=== PATIENT | female | born 1940 | race Caucasian/White ===

== ENCOUNTER 2019-06-20 22:06 | Inpatient (IN) | payer MEDICARE, BC ==
[~2019-06-20] VITALS: Ht 160 cm; Wt 65.8 kg
[2019-06-20 22:06] VITALS: BP 128/63
--- NOTE | 2019-06-20 22:06 | NUR ---
ED Nurse Note: PT ARRIVED WITH RA 861 FROM [facility] D/T UPPER BACK, NECK, AND SHOULDER PAIN FOR 30 MIN. PT STATES SHE HAS HX OF NEUROPATHY
[2019-06-20] MEDS ORDERED: Omnipaque-300 100ml vial INJ ONE (22:15)
[2019-06-20] MEDS ORDERED: Morphine Sulfate 4mg/ml Inj (IV USE ONLY) IVP ONE (22:15)
--- NOTE | 2019-06-20 22:17 | Emergency Room Report ---
History of Present Illness General Chief Complaint: Pain Source: Patient Present Illness HPI This is an 78-year-old female with past medical history of reflux. She presents with chief complaint of acute onset of back pain. Occurred just prior to arrival. Initially she had sharp pain to her right shoulder. 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 It radiated up her back and down her back. She described the pain as sharp 10 out of 10. She felt short of breath and nervous. No chest pain. No nausea no vomiting. Also with a headache. Never had this problem before. Denies any other complaint. Allergies: Coded Allergies: No Known Allergies (Unverified , 06/20/19) Patient History Past Medical History: see triage record, old chart reviewed Past Surgical History: none Pertinent Family History: none Social History: Denies: smoking Now: No Immunizations: other Reviewed Nursing Documentation: PMH: Agreed; PSxH: Agreed Nursing Documentation-PMH Past Medical History: No History, Except For Hx Cardiac Problems: No - NEUROPATHY, PRE-DIABETES Review of Systems Eye: Denies: eye pain, blurred vision ENT: Denies: ear pain, nose congestion, throat swelling Respiratory: Denies: cough, shortness of breath Cardiovascular: Denies: chest pain, palpitations Gastrointestinal: Denies: abdominal pain, diarrhea, nausea, vomiting Musculoskeletal: Reports: back pain; Denies: joint pain Skin: Denies: rash Neurological: Denies: headache, numbness Endocrine: Denies: increased thirst, increased urine Hematologic/Lymphatic: Denies: easy bruising All Other Systems: negative except mentioned in HPI Physical Exam Vital Signs Date Time Temp Pulse Resp B/P (MAP) Pulse Ox O2 Delivery O2 Flow Rate FiO2 06/20/19 22:01 97.0 78 18 128/63 (84) 99 Room Air Vitals normal Sp02 EP Interpretation: reviewed, normal General Appearance: well appearing, no apparent distress, alert Head: normocephalic, atraumatic Eyes: bilateral eye PERRL, bilateral eye EOMI ENT: hearing grossly normal, normal pharynx Neck: full range of motion, supple, no meningismus Respiratory: chest non-tender, lungs clear, normal breath sounds Cardiovascular #1: regular rate, rhythm, no murmur Gastrointestinal: normal bowel sounds, non tender, no mass, no organomegaly, no bruit, non-distended Musculoskeletal: back normal, gait/station normal, normal range of motion Neurologic: alert, oriented x3 Psychiatric: anxious Medical Decision Making Diagnostic Impression: Primary Impression: Intractable back pain Additional Impression: Anxiety ER Course Patient presents with acute onset of thoracic back pain. Labs and CT ordered to rule out dissection EKG is unremarkable. Patient is anxious. Morphine and Ativan given for the patient. Patient went somewhat to be sitting there to comfort her. Explained to the patient that ER is very busy and I do not have any staff to sit by her. Patient was not happy with this. Explained to the patient that return if you are out what is going on with her. We will treat her pain and anxiety. This patient presents with acute onset of thoracic back pain that reaches a front. Labs unremarkable. Chest x-ray unremarkable. CT chest abdomen pelvis negative for dissection. 2 troponins negative. She does have narrative changes of her spine. This may be the cause of her pain. Because she never had this problem before and with severe pain, will admit for further work-up. I discussed the case with Dr. Sinclair for admission. EKG Diagnostic Results Rate: normal Rhythm: NSR ST Segments: no acute changes Rhythm Strip Diag. Results EP Interpretation: yes Rate: 77 Rhythm: NSR, no PVC's, no ectopy Chest X-Ray Diagnostic Results Chest X-Ray Diagnostic Results : Chest X-Ray Ordered: Yes # of Views/Limited/Complete: 1 View Indication: Chest Pain EP Interpretation: Yes Interpretation: no consolidation, no effusion, no pneumothorax, no acute cardiopulmonary disease Impression: No acute disease Electronically Signed by: Greyson Garza MD CT/MRI/US Diagnostic Results CT/MRI/US Diagnostic Results : Imaging Test Ordered: CT chest abdomen and pelvis Impression Neg per radiologist. Last Vital Signs Date Time Temp Pulse Resp B/P (MAP) Pulse Ox O2 Delivery O2 Flow Rate FiO2 06/20/19 22:06 97.3 78 18 128/63 99 Room Air Status: improved Disposition: ADMITTED INPATIENT Condition: Serious Scripts No Active Prescriptions or Reported Meds Greyson Garza MD Jun 20, 2019 22:17
--- NOTE | 2019-06-20 22:22 | NUR ---
ED Nurse Note: IV site established, patent and intact. medication was administered, pt tolerated well. Will continue to monitor and await further orders
--- NOTE | 2019-06-20 22:40 | NUR ---
ED Nurse Note: xray at bedside
[2019-06-20] MEDS ORDERED: LORazepam Inj 2mg/ml 1ml IV ONE (22:45)
[2019-06-20 22:47] LABS: BASOPHILS % (AUTO) 1.1 % (0.0-2.0); EOSINOPHILS % (AUTO) 1.1 % (0.0-3.0); HEMATOCRIT 41.7 % (37.0-47.0); LYMPHOCYTES % (AUTO) 28.6 % (20.0-45.0); MEAN CORPUSCULAR VOLUME 86 FL (80-99); NEUTROPHILS % (AUTO) 61.1 % (45.0-75.0); PLATELET COUNT 274 K/UL (150-450); RED BLOOD COUNT 4.83 M/UL (4.20-5.40); RED CELL DISTRIBUTION WIDTH 11.6 % (11.6-14.8); WHITE BLOOD COUNT 11.3 K/UL (4.8-10.8)
[2019-06-20 23:00] LABS: ANION GAP 13 mmol/L (5-15); BLOOD UREA NITROGEN 19 mg/dL (7-18); CALCIUM 10.2 MG/DL (8.5-10.1); CARBON DIOXIDE 23 MMOL/L (21-32); CHLORIDE 105 MMOL/L (98-107); POTASSIUM 3.3 MMOL/L (3.5-5.1); SODIUM 141 MMOL/L (136-145)
[2019-06-20 23:02] LABS: INR 0.9 (0.9-1.1)
[2019-06-20 23:13] LABS: ALANINE AMINOTRANSFERASE 25 U/L (12-78); ALBUMIN 3.7 G/DL (3.4-5.0); ALBUMIN/GLOBULIN RATIO 0.9 (1.0-2.7); ALKALINE PHOSPHATASE 82 U/L (46-116); ASPARTATE AMINO TRANSFERASE 16 U/L (15-37); BILIRUBIN,TOTAL 0.4 MG/DL (0.2-1.0); CKMB 2.3 NG/ML (0.0-3.6); CREATINE KINASE 112 U/L (26-308)
--- NOTE | 2019-06-20 23:20 | NUR ---
ED Nurse Note: FRIEND CALI IS AT BEDSIDE
--- NOTE | 2019-06-20 23:43 | NUR ---
ED Nurse Note: PT TAKEN FOR CTA
[2019-06-20] MEDS ORDERED: Ketorolac 30mg Inj IV ONE (23:45)
[2019-06-21] VITALS: BP 135/73
--- NOTE | 2019-06-21 00:06 | Diagnostic Imaging Report ---
EXAM: XR Chest, 1 View CLINICAL HISTORY: CP TECHNIQUE: Frontal view of the chest. COMPARISON: No relevant prior studies available. IMPRESSION: Cardiomegaly. Increased opacity in the bilateral lower lobes, possibly edema, infection, or atelectasis. No pleural effusion.
--- NOTE | 2019-06-21 00:39 | NUR ---
ED Nurse Note: PT RETURNED FROM CT AND WAS REPORTED COMPLETED.
[2019-06-21] MEDS ORDERED: HYDROmorphone 1mg/ml Carpuject IVP ONE (00:45)
--- NOTE | 2019-06-21 00:50 | NUR ---
ED Nurse Note: Pt placed on 2 L nasal cannula, d/t 89% O2 at s/p dilaudid
--- NOTE | 2019-06-21 01:00 | NUR ---
ED Nurse Note: Trey Hughes at bedside.
[2019-06-21 02:00] VITALS: BP 129/68
--- NOTE | 2019-06-21 03:25 | NUR ---
ED Nurse Note: TELEPHONE REPORT GIVEN TO KEMI MOCTEZUMA FOR CONTINUITY OF CARE
[2019-06-21] MEDS ORDERED: Ketorolac 30mg Inj IV PRN (03:30)
[2019-06-21] MEDS ORDERED: HYDROmorphone 1mg/ml Carpuject IVP PRN (03:30)
--- NOTE | 2019-06-21 03:45 | NUR ---
TRANSFER TO FLOOR: Patient transferred to TELE as ordered, per ERMD. Report given to KEMI MOCTEZUMA. Belongings and medications given to RAFAT SIGALA (SON) AND PT. Family informed of transfer.
--- NOTE | 2019-06-21 03:45 | NUR ---
NURSE NOTES: Received patient from ED, brought by KEMI Junior, via suad in stable condition, AOx4, complaining of neck pain radiating to both arms, IV site on right AC g18 patent, asymptomatic, intact, skin is intact, patient is ambulatory, belonging list checked&signed, admission ors Addendum: 06/21/19 at 0424 by RYAN BECK RN Continuation of note: Admission orders received, noted and carried out, doreen Keys at bedside, bed low &locked, side rails up x2, call light within reach, will continue to monitor and reassess.
[2019-06-21 04:04] VITALS: BP 140/70
--- NOTE | 2019-06-21 05:15 | Diagnostic Imaging Report ---
EXAM: CT Chest With Intravenous Contrast CLINICAL HISTORY: pain TECHNIQUE: Axial computed tomography images of the chest with intravenous contrast. CTDI is 133 mGy and DLP is 1694 mGy-cm. One or more of the following dose reduction techniques were used: automated exposure control, adjustment of the mA and or kV according to patient size, use of iterative reconstruction technique. COMPARISON: 06 20 19 x-ray FINDINGS: Lungs: No mass. No consolidation. Pleural space: No pneumothorax. No significant effusion. Heart: Normal heart size. No pericardial effusion. Bones joints: No acute fracture. Soft tissues: Subcentimeter nodules in the right thyroid gland. Vasculature: Unremarkable. No thoracic aortic aneurysm. Lymph nodes: No enlarged lymph nodes. Upper abdomen: Unremarkable. IMPRESSION: No acute intrathoracic findings. Subcentimeter nodules in the right thyroid gland. EXAM: CT Abdomen and Pelvis With Intravenous Contrast CLINICAL HISTORY: pain TECHNIQUE: Axial computed tomography images of the abdomen and pelvis with intravenous contrast. CTDI is 133 mGy and DLP is 1694 mGy-cm. One or more of the following dose reduction techniques were used: automated exposure control, adjustment of the mA and or kV according to patient size, use of iterative reconstruction technique. COMPARISON: No relevant prior studies available. FINDINGS: ABDOMEN: Liver: Multiple cysts. Gallbladder and bile ducts: Unremarkable. Pancreas: Unremarkable. Spleen: Unremarkable. Adrenals: Unremarkable. Kidneys and ureters: No hydronephrosis. Multiple cysts. Stomach and bowel: Copious amounts of stool throughout the colon. Mildly dilated distal small bowel with underlying fecalization PELVIS: Appendix: No evidence of appendicitis. Bladder: Unremarkable. Reproductive: Unremarkable. ABDOMEN and PELVIS: Intraperitoneal space: Unremarkable. Bones joints: No acute fractures. Right total hip arthroplasty hardware is intact. Grade 1 anterolisthesis of L5 on S1 with at least moderate spinal canal stenosis. Soft tissues: Unremarkable. Vasculature: No abdominal aortic aneurysm. Lymph nodes: No enlarged lymph nodes. IMPRESSION: 1. Copious amounts of stool throughout the colon. The distal small bowel is mildly distended with underlying fecalization. This may represent slow transit versus developing small bowel obstruction (less likely but possible).
--- NOTE | 2019-06-21 07:27 | NUR ---
HAND-OFF: Report given to KEMI Schmidt plan of care endorsed ,patient stable
--- NOTE | 2019-06-21 07:45 | NUR ---
NURSE NOTES: pt. sitting at edge of bed talking on the ph. food tray is at bedside. 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 Call light is within reach. Bed is locked and in lowest position. Will continue to monitor.
[2019-06-21 08:00] VITALS: BP 142/61
[2019-06-21] MEDS ORDERED: Acetaminophen 650mg/20.3ml NG PRN ×2 (09:15→13:15)
[2019-06-21] MEDS ORDERED: HYDROcodone/Acetamin 5/325 tab ORAL PRN ×3 (09:15→15:15)
[2019-06-21] MEDS ORDERED: Ketorolac 60mg Inj IM PRN ×2 (09:15→11:30)
[2019-06-21] MEDS ORDERED: Zolpidem 5mg tab ORAL PRN ×2 (09:15→13:07)
[2019-06-21 10:01] LABS: CHOLESTEROL 308 MG/DL (< 200); HDL CHOLESTEROL 63 MG/DL (40-60); TRIGLYCERIDES 92 MG/DL (30-150)
--- NOTE | 2019-06-21 11:12 | Diagnostic Imaging Report ---
EXAM: CT Head Without Intravenous Contrast CLINICAL HISTORY: PAIN TECHNIQUE: Axial computed tomography images of the head brain without intravenous contrast. CTDI is 60.0 mGy and DLP is 1334.1 mGy-cm. One or more of the following dose reduction techniques were used: automated exposure control, adjustment of the mA and or kV according to patient size, use of iterative reconstruction technique. COMPARISON: None FINDINGS: Brain: Blood in the left caudate head, extending into the ventricles. No acute territorial infarct. No mass effect or midline shift. Scattered areas of hypoattenuation in the supratentorial white matter likely represent chronic small vessel ischemic changes. Ventricles and sulci: Lead noted in the left greater than right frontal horns of the lateral ventricles and in the third ventricle and fourth ventricle. Mild prominence of the ventricles and sulci is likely secondary to cerebral volume loss. No significant hydrocephalus. Bones: Normal. No bony lesion or fracture. Subcutaneous tissues: Normal. Sinuses: Normal. No air-fluid levels or mucosal thickening. Mastoid air cells: Normal. Orbits: Bilateral lens implants. Other: Atherosclerotic calcifications in the intracranial vasculature. IMPRESSION: 1. Blood in the left caudate head, extending into the ventricles. No definite hydrocephalus. 2. Mild chronic small vessel ischemic changes and cerebral volume loss. <MYCVCSECTION> [employer] 10 11:51 Call Doctor Regarding Intracranial Hemorrhage, called given another # to page Dr Sinclair [phone]. phone rings and rings then get a message to call another # [phone].
[2019-06-21] MEDS ORDERED: LORazepam Inj 2mg/ml 1ml IV PRN ×2 (11:30→13:07)
[2019-06-21 12:00] VITALS: BP 150/70
[2019-06-21] MEDS ORDERED: D5NS 1,000 ML IV SCH ×2 (12:00→13:00)
--- NOTE | 2019-06-21 12:01 | History & Physical ---
History and Physical History & Physicial Dict -89 completed on 1200 Mell Sarmiento MD Jun 21, 2019 12:01
--- NOTE | 2019-06-21 12:06 | General Progress Note ---
Assessment/Plan Assessment/Plan: Full Dictation inprogress A/P: 1- Acute headache and Dizziness Plan: Ct head STAT Comment: Stat result received from STAT rad. Transfer center from [place] notified. Will transfer patient to ICU in the interim Subjective Allergies: Coded Allergies: No Known Allergies (Unverified , 06/20/19) Objective Last 24 Hour Vital Signs Date Time Temp Pulse Resp B/P (MAP) Pulse Ox O2 Delivery O2 Flow Rate FiO2 06/21/19 04:04 97.6 68 18 140/70 (93) 99 06/21/19 04:04 Room Air 06/21/19 03:53 72 06/21/19 03:45 97.5 76 16 124/67 95 Nasal Cannula 2.0 06/21/19 02:00 97.1 86 16 129/68 96 Nasal Cannula 2.0 06/21/19 00:39 97.3 06/21/19 00:00 97.5 89 16 135/73 98 Room Air 06/20/19 22:50 97.3 06/20/19 22:06 97.3 78 18 128/63 99 Room Air 06/20/19 22:01 97.0 78 18 128/63 (84) 99 Room Air Intake and Output 06/20/19 06/21/19 19:00 07:00 Intake Total 700 ml Output Total 0 ml Balance 700 ml Intake Oral 200 ml IV Total 500 ml Output Urine Total 0 ml Laboratory Tests 06/20/19 22:22: White Blood Count 11.3H, Red Blood Count 4.83, Hemoglobin 14.0, Hematocrit 41.7 , Mean Corpuscular Volume 86, Mean Corpuscular Hemoglobin 29.0, Mean Corpuscular Hemoglobin Concent 33.6, Red Cell Distribution Width 11.6, Platelet Count 274, Mean Platelet Volume 7.1, Neutrophils (%) (Auto) 61.1, Lymphocytes (% ) (Auto) 28.6, Monocytes (%) (Auto) 8.0, Eosinophils (%) (Auto) 1.1, Basophils ( %) (Auto) 1.1, Prothrombin Time 10.0, Prothromb Time International Ratio 0.9, Activated Partial Thromboplast Time 26, Sodium Level 141, Potassium Level 3.3L, Chloride Level 105, Carbon Dioxide Level 23, Anion Gap 13, Blood Urea Nitrogen 19H, Creatinine 1.0, Estimat Glomerular Filtration Rate , Glucose Level 122H, Calcium Level 10.2H, Total Bilirubin 0.4, Aspartate Amino Transf (AST/SGOT) 16, Alanine Aminotransferase (ALT/SGPT) 25, Alkaline Phosphatase 82, Total Creatine Kinase 112, Creatine Kinase MB 2.3, Creatine Kinase MB Relative Index 2.0, Troponin I 0.000, Total Protein 7.6, Albumin 3.7, Globulin 3.9, Albumin/ Globulin Ratio 0.9L 06/21/19 00:10: Triglycerides Level 92, Cholesterol Level 308H, LDL Cholesterol 222H, HDL Cholesterol 63H, Cholesterol/HDL Ratio 4.9H, Thyroid Stimulating Hormone (TSH) 3.575 06/21/19 00:44: Troponin I 0.000 Height (Feet): 5 Height (Inches): 3.00 Weight (Pounds): 145 Mell Sinclair MD Jun 21, 2019 12:06
[2019-06-21 12:27] VITALS: BP 150/70
--- NOTE | 2019-06-21 12:47 | NUR ---
NURSE NOTES: LATE ENTRY PT RECEIVED FROM FADI MCMULLEN TELE. D/T ICH PT A/OX4, C/O FATIGUE AND LIGHT SENSITIVITY. PUPILS 3MM SLUGGISH. REACTIVE TO LIGHT. HOB>45. PT ON 2LNC FOR COMFORT, SATING 100%. BILATERAL RADIAL PULSES BOUNDING AND PEDAL PULSES STRONG. CAP REFILL< 3 SEC. NO EDEMA OR JVD. RESPIRATORY RATE 18, BP 168/84, HR 98. LUNGS CLEAR ON AUSCULTATION. NO COUGH OR SECRETIONS. NO FACIAL DROPPING NOTED. PT R/O HAVING NEUROPATHY, DECREASED SENSATION IN LOWER LEGS. STRENGTH BILATERAL 4/5. ABDOMEN SOFT, NON TENDER. NO BM AT THIS TIME. SKIN INTACT. PT CONTINENT AND VOIDS. IV ACCESS RT AC 18G RUNNING D5NS AT 75ML/HR. ORIENTED PT TO ROOM AND USE OF CALL LIGHT, NOT TO GET OUT OF BED. BED ALARM ON, LOCKED AND IN POSITION. WILL CONTINUE TO MONITOR PT.
--- NOTE | 2019-06-21 13:05 | NUR ---
NURSE NOTES: transferred pt to I, threat monitoring analyst taken off from pt and replaced with ICU's monitor. Pt alert and oriented. Pt breathing well no signs of cardiac or respiratory distress. Pt belongings were checked with nurse. Gave all information pertaining to Rajeev's transfer to [facility], she will make all necessary transfer arrangements.
[2019-06-21] MEDS ORDERED: Acetaminophen 650mg/20.3ml ORAL PRN (13:06)
[2019-06-21] MEDS ORDERED: Ketorolac 30mg Inj IM PRN (13:07)
--- NOTE | 2019-06-21 14:00 | History and Physical Report ---
DATE OF ADMISSION: 06/21/2019 SOURCE OF INFORMATION: Patient and EMR. HISTORY OF PRESENT ILLNESS: The patient is an 78-year-old female with history of hypertension and hyperlipidemia. The patient presented with the acute onset of headache and lightheadedness. During the scene that she was with the other. The patient denies any blurry vision. The patient denies any loss of consciousness. At the time of evaluation, the patient denies any chest pain or shortness of breath. ALLERGIES: NKDA. SOCIAL HISTORY: Denies history of illicit drug abuse, smoking, or alcohol abuse. CURRENT HOSPITAL MEDICATIONS: Including, but not limited to amlodipine and potassium 40 mEq x1. PAST MEDICAL HISTORY: Hypertension and hyperlipidemia. FAMILY HISTORY: Reviewed and noncontributory. PHYSICAL EXAMINATION: VITAL SIGNS: Blood pressure of 120/80, temperature 98.2, pulse oximetry 98% on room air, pulse rate 72. HEAD AND NECK: Atraumatic and normocephalic. CHEST: Clear to auscultation. HEART: S1, S2. Regular rate and rhythm. ABDOMEN: Soft. No organomegaly. MUSCULOSKELETAL: No gross lateralized motor deficit. NEUROLOGY: The patient is awake, alert, and oriented x3. LABORATORY DATA: Laboratories dated June 20, shows WBC 11.3, potassium 3.3, BUN 19, cholesterol 300, and TSH of 3.5. ASSESSMENT AND PLAN: 1. Acute headache. 2. Hypokalemia. 3. Hypertension. 4. Hyperlipidemia, controlled. 5. GI and DVT prophylaxis. PLAN OF CARE: I will order the stat CT scan of the head. We will follow up. Mell Sinclair M.D. DR: KIRSTIN JOB#: [id number] CC:
--- NOTE | 2019-06-21 14:27 | NUR ---
NURSE NOTES: CALLED [facility] SPOKE WITH [facility]A, TRANSFERRED TO GIVE REPORT TO SATHISH MCMULLEN. SBAR USED, ALL QUESTIONS ANSWERED. PT IN NO ACUTE DISTRESS. GOING TO ROOM 8S 50. MD HELLER.
--- NOTE | 2019-06-21 14:50 | NUR ---
NURSE NOTES: CALLED PT SON GASTON Guadalupe. INFORMED THAT MOTHER WILL TRANSFER TO [facility] THIS EVENING, ETA 1530.
--- NOTE | 2019-06-21 14:57 | NUR ---
NURSE NOTES: [facility] [employer] HERE, REPORT GIVEN, ALL QUESTIONS ANSWERED. IMAGE DISK AND CHART GIVEN, GOING TO [facility] ICU. PT IN NO ACUTE DISTRESS.
--- NOTE | 2019-06-21 15:00 | NUR ---
NURSE NOTES: PT RECEIVED FROM FADI MCMULLEN TELE. D/T ICH PT A/OX4, C/O FATIGUE AND LIGHT SENSITIVITY. PUPILS 3MM SLUGGISH. REACTIVE TO LIGHT. HOB>45. PT ON 2LNC FOR COMFORT, SATING 100%. BILATERAL RADIAL PULSES BOUNDING AND PEDAL PULSES STRONG. CAP REFILL< 3 SEC. NO EDEMA OR JVD. RESPIRATORY RATE 18, BP 168/84, HR 98. LUNGS CLEAR ON AUSCULTATION. NO COUGH OR SECRETIONS. NO FACIAL DROPPING NOTED. PT R/O HAVING NEUROPATHY, DECREASED SENSATION IN LOWER LEGS. STRENGTH BILATERAL 4/5. ABDOMEN SOFT, NON TENDER. NO BM AT THIS TIME. SKIN INTACT. PT CONTINENT AND VOIDS. IV ACCESS RT AC 18G RUNNING D5NS AT 75ML/HR. ORIENTED PT TO ROOM AND USE OF CALL LIGHT, NOT TO GET OUT OF BED. BED ALARM ON, LOCKED AND IN POSITION. WILL CONTINUE TO MONITOR PT. Addendum: 06/21/19 at 1730 by Gina Angeles RN WRONG TIME
[2019-06-22] MEDS ORDERED: Enoxaparin 40mg Inj SUBQ SCH (09:00)
--- NOTE | 2019-06-23 07:56 | Discharge Summary ---
Discharge Summary Discharge Summary _ DATE OF ADMISSION: 06/21/2019 DATE OF DISCHARGE: 06/21/2019 DISCHARGED BY: Dr. Sinclair REASON FOR ADMISSION: 78 years old female with past medical history of HTN, GERD, presented with chief complaint of acute onset of back pain, which started just prior to arrival to ED. Initially patient had sharp pain to her right shoulder. 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 She described pain as sharp, 10 out of 10 on a scale 1-10. Patient was nervous and short of breath. Patient also reported headache. No chest pain. No nausea or vomiting . Upon evaluation in the emergency department vital signs were stable. EKG revealed normal sinus rhythm . Troponin negative. Mild leukocytosis with WBC 11.3 , stable hemoglobin and hematocrit. Potassium 3.3 . BUN 19, creatinine 1.0. Glucose 122. Stable coagulation profile. Lipid panel revealed elevated total cholesterol 308, elevated LDL 222, HDL 63. Chest x-ray demonstrated increased opacity in bilateral lower lobes, possibly edema, infection or atelectasis. No pleural effusion. CT scan of the chest revealed no acute intrathoracic findings. Subcentimeter nodules in the right thyroid gland. CT of the abdomen and pelvis revealed copious amounts of stool throughout the colon. Echocardiogram demonstrated preserved ejection fraction 55 to 60%, no evidence of left ventricular hypertrophy. No evidence of wall motion abnormality. Patient admitted for further management HOSPITAL COURSE: Patient admitted . Potassium replaced. Home medication resumed. DVT and GI prophylaxis provided. Upon evaluation, patient complained of acute headache. Subsequently she undergone stat CT of the head, which revealed blood in the left caudate head, extending into the ventricles. No definite hydrocephalus. Mild chronic small vessel ischemic changes and cerebral volume loss. Patient was in ICU under close monitoring while awaiting for transfer to a higher level of care. Place was urgently secured at [facility] ICU. Patient was subsequently transferred via [facility] ambulance for further management. FINAL DIAGNOSES: Intracranial bleeding Hypertension Hyperlipidemia Hypokalemia Acute headache likely to intracranial bleeding DISCHARGE MEDICATIONS: List of medication was sent with patient . DISCHARGE INSTRUCTIONS: [place] [facility] [place] [facility] [place] I have been assigned to dictate discharge summary for this account. I was not involved in the patient's management. Adriana Crespo NP Jun 23, 2019 07:56
--- NOTE | 2019-06-23 11:48 | Cardiology Report ---
APPROVED REPORT EXAM: Two-dimensional and M-mode echocardiogram with Doppler and color Doppler. INDICATION Chest Pain M-Mode DIMENSIONS IVSd0.6 (0.7-1.1cm)Left Atrium (MM)3.4 (1.6-4.0cm) LVDd4.3 (3.5-5.6cm)Aortic Root2.8 (2.0-3.7cm) PWd1.1 (0.7-1.1cm)Aortic Cusp Exc.1.5 (1.5-2.0cm) IVSs1.0 cm LVDs2.7 (2.5-4.0cm) PWs1.4 cm Technically difficult study due to poor acoustical windows. Normal left ventricular chamber size, systolic function and wall motion to extent visualized. Left ventricular ejection fraction estimated to be 55-60%. Anterior Echo-free space, may be due to pericardial fat or effusion. No left ventricular hypertrophy. All other cardiac chamber sizes are within normal limits. Focal aortic valve sclerosis with adequate cusp excursion. Thickened mitral valve leaflets with normal excursion. Mitral annulus and aortic root calcification. Pulmonic valve not well visualized. Normal tricuspid valve structure. IVC at normal size with physiologic collapse. A color flow and spectral Doppler study was performed and revealed: No aortic insufficiency . Trace mitral regurgitation . Mitral diastolic velocities suggest reduced left ventricular relaxation c/w mild LV diastolic dysfunction (Grade I ). Trace tricuspid regurgitation. Tricuspid systolic velocities suggests peak right ventricular systolic pressure of 10 mmHg.
--- NOTE | 2019-06-23 14:02 | Cardiology Report ---
APPROVED REPORT EKG Measurement Heart [id number] Sinus rhythm with marked sinus arrhythmia Low voltage QRS Cannot rule out Anterior infarct, age undetermined Abnormal ECG
== END 2019-06-21 16:22 | disposition short-term general hospital (02) | DRG 66 ==
LOC: EDBD 22:06 → EMR 22:24 → 2E 06-21 01:16 → EDBEDREQ 06-21 03:16 → ICU 06-21 13:03
DX: I62.9 Nontraumatic intracranial hemorrhage, unspecified (principal); M54.9 Dorsalgia, unspecified; R51 Headache; I10 Essential (primary) hypertension; E78.5 Hyperlipidemia, unspecified; E87.6 Hypokalemia; K21.9 Gastro-esophageal reflux disease without esophagitis
CPT/HCPCS: 36415; 70450; 71045; 71260; 74177; 80053; 80061; 82550; 82553; 84443; 84484; 85025; 85610; 85730; 93005; 93306; 96374; 96375; 99285; J2405; J8499